=== PATIENT | male | born 1995 | race Caucasian/White ===

== ENCOUNTER 2017-01-16 21:50 | Emergency (ER) | payer OTHER ==
[~2017-01-16] VITALS: Ht 182.9 cm; Wt 75.1 kg
[2017-01-16] MEDS ORDERED: LAMO200T PO (22:07)
[2017-01-17] MEDS ORDERED: NORCO 5/325MG TABLET (BULK FOR ED) PO ONE (01:00)
[2017-01-17] MEDS ORDERED: NORCOTAB PO (01:04)
[2017-01-17 01:20] VITALS: BP 141/72
--- NOTE | 2017-01-17 14:28 | REP ---
LEFT SHOULDER: Four views of the left shoulder are performed. There is a comminuted fracture of the mid clavicle with inferior displacement and angulation. Acromioclavicular joint remains well aligned. No other fracture or dislocation is seen. Signed by Parker Diego MD 01/17/2017 03:23 P
== END 2017-01-17 01:21 | disposition home or self-care (01) ==
LOC: M ED 21:50
DX: S42.002A Fracture of unspecified part of left clavicle, initial encounter for closed fracture (principal); W18.09XA Striking against other object with subsequent fall, initial encounter; Y92.830 Public park as the place of occurrence of the external cause; Y93.89 Activity, other specified; Y99.8 Other external cause status; Z88.0 Allergy status to penicillin; Z79.899 Other long term (current) drug therapy

== ENCOUNTER 2017-02-06 10:35 | Day surgery (SDC) | payer OTHER ==
[~2017-02-06] VITALS: Ht 182.9 cm; Wt 77.1 kg
[~2017-02-06 10:35] MED LIST: LAMO200T PO; NORCOTAB PO
[2017-02-06] MEDS ORDERED: LR 1,000 ML IV ONE (11:00)
[2017-02-06] MEDS ORDERED: MIRT15TA3 PO (11:10)
[2017-02-06] MEDS ORDERED: CLINDAMYCIN INJ 900MG/6ML VIAL As Ordered ONE (11:50)
[2017-02-06] MEDS ORDERED: MIDAZOLAM INJ 2 MG/2 ML VIAL (J2250) As Ordered ONE (13:29)
[2017-02-06] MEDS ORDERED: fentaNYL 250 MCG/5 ML INJECTION (J3010) As Ordered ONE (13:29)
[2017-02-06] MEDS ORDERED: HYDROmorphone HCL 2 MG/ML 1ML VIAL (J1170) As Ordered ONE (13:29)
[2017-02-06] MEDS ORDERED: ONDANSETRON 4MG/2ML VIAL (J2405) As Ordered ONE (13:29)
[2017-02-06] MEDS ORDERED: NEOSTIGMINE 1MG/ML 5 ML SYRINGE (J2710) As Ordered ONE (13:29)
[2017-02-06] MEDS ORDERED: PROPOFOL 200 MG/20 ML VIAL As Ordered ONE (13:29)
[2017-02-06] MEDS ORDERED: ROCURONIUM BROMIDE 50 MG/5 ML VIAL/SYRINGE As Ordered ONE (13:29)
[2017-02-06] MEDS ORDERED: GLYCOPYRROLATE INJ 0.2 MG/ML 2 ML VIAL As Ordered ONE (13:29)
[2017-02-06] MEDS ORDERED: LIDOCAINE 2% INJ 100 MG/5 ML SDV (FOR ANES.) As Ordered ONE (13:29)
[2017-02-06] MEDS ORDERED: dexameTHASONE 4 MG/ML 1ML VIAL (J1100) As Ordered ONE (13:29)
--- NOTE | 2017-02-06 15:27 | REP ---
Left shoulder intraoperative fluoroscopic views: A total of three intraoperative fluoroscopic views are performed during stabilization plate placement of a clavicle fracture. The stabilization plate and fracture fragments are in satisfactory position alignment on all views. Fluoroscopic exposure time is 7 seconds. Fluoroscopic images are performed with last image hold technology. These images require no additional radiation. Signed by Parker Lee MD 02/06/2017 03:19 P
[2017-02-06] MEDS ORDERED: PERCOCET 5MG/325MG TAB As Ordered ONE (15:32)
[2017-02-06] MEDS: PERCOCET 5MG/325MG TAB PO PRN ×2 (15:33→16:10)
[2017-02-06] MEDS ORDERED: LR 1,000 ML IV SCH ×2 (15:45)
[2017-02-06] MEDS ORDERED: ONDANSETRON 4MG/2ML VIAL (J2405) IV PRN (15:45)
[2017-02-06] MEDS ORDERED: MORPHINE 4 MG/ML 1ML SYRINGE IV PRN (15:45)
[2017-02-06] MEDS ORDERED: NORCO, ANEXSIA 5/325MG TABLET (HYDROcodone/ACETAMINOPHEN) PO PRN ×2 (15:45)
[2017-02-06] MEDS ORDERED: METOCLOPRAMIDE INJ 10MG/2ML VIAL (J2765) IV PRN (15:45)
[2017-02-06] MEDS ORDERED: MEPERIDINE INJ 25 MG/ML VIAL (J2175) IV PRN (15:45)
[2017-02-06] MEDS ORDERED: fentaNYL 100 MCG/2 ML INJECTION (J3010) IV PRN (15:45)
[2017-02-06 17:35] VITALS: BP 133/75
--- NOTE | 2017-02-08 08:10 | RO ---
DATE OF PROCEDURE: 02/06/2017 PREPROCEDURE DIAGNOSIS: Comminuted displaced symptomatic left clavicle fracture. POSTPROCEDURE DIAGNOSIS: Comminuted displaced symptomatic left clavicle fracture. PROCEDURE: Open reduction internal fixation left clavicle fracture. SURGEON: Daron Gutierrez MD HISTOLOGY TECH: None. ANESTHESIA: General endotracheal tube anesthesia. COMPLICATIONS: None. ESTIMATED BLOOD LOSS: 50 mL. SPECIMENS: None. FINDINGS: It was a comminuted fracture midshaft clavicle with an inferior shell-like butterfly fragment. DESCRIPTION OF PROCEDURE: Antibiotics given intravenously preoperatively, then a successful general endotracheal tube anesthetic was established. He was placed on a Willem table, a bump placed under the left scapula. His left upper extremity was carefully prepped and then draped in the usual sterile fashion. A superior longitudinal incision was made over the fracture site after appropriate time-out had been obtained. Ioban was used. Bovie cautery was used to coagulate the bleeding vessels, then we dissected full thickness down onto the periosteum of the fracture site. Careful subperiosteal dissection around the fracture site was performed taking great care to minimize soft tissue stripping. There was a comminuted butterfly fragment that was sitting essentially vertically in the fracture site and that had to be teased out and, eventually, I was able to remove it. This butterfly fragment came from the inferior surface across the fracture site. It was difficult to piece it anatomically back together again because of some comminution, but I was able to get the fracture on the dorsal or superior surface anatomically aligned, open, and then, once that was in position, I was able to tease the butterfly fragment back underneath and across, bridging the fracture site and held it with an alligator clamp relatively stably. I then chose a plate to bridge across the fracture and, eventually, the one that fit the best was a Synthes left clavicle plate with the locking extensions. Once that was in position, I secured the plate down to the lateral fragment first with a standard 3.5 locking screw. Once that was applied to the plate along the lateral fragment, I reduced the fracture once again and then applied a standard 3.5 cortical screw on the medial side of the fracture site holding the fracture bridged in good, stable position. I then clamped the butterfly fragment that was inferior bridging across the fracture site and lagged that butterfly fragment with two of the screws that bridged on either side of the fracture site. I used the 3.5 drill through the plate and then the 2.5 drill inferiorly and passed 3.5 cortical screws in a lag fashion holding that fracture site nicely fixed across the fracture site. I then used a standard 2.7 screw laterally to hold the locking portion of the plate down against the clavicle, and then once that was held nicely down, I filled two additional locking screws using the 2.0 drill and 2.7 locking screws, and then replaced that 2.7 cortical screw with a standard locking screw laterally and then filled the remaining medial screw with a standard 3.5 cortical screw. Excellent stability was noted. I was quite pleased with the overall construct. Fluoroscopic imaging, AP, and lateral, and oblique planes showed we had good alignment of the fracture. The butterfly fragment was well coapted across the fracture site, not anatomically in position, but the construct was stable, and I felt this should allow things to bridge and heal appropriately. We copiously irrigated as I did several times throughout the operation. I was able to close the periosteum over the top of the plate with interrupted #2-0 PDS sutures, subdermal tissues were closed with interrupted #2-0 PDS sutures, and then the skin was closed with michelle. We then covered the wound with a bulky dressing and then he was placed into a sling and then awakened from general endotracheal tube anesthesia after having tolerated the procedure well, transferred to the recovery room in stable condition. There were no intraoperative complications.
== END 2017-02-06 17:48 ==
LOC: M SDC 10:35
PROVIDERS: ATTEND Orthopaedic Surgery
DX: S42.022A Displaced fracture of shaft of left clavicle, initial encounter for closed fracture (principal); X58.XXXA Exposure to other specified factors, initial encounter; Y92.89 Other specified places as the place of occurrence of the external cause; Y93.89 Activity, other specified; Y99.8 Other external cause status; Z88.0 Allergy status to penicillin; F17.210 Nicotine dependence, cigarettes, uncomplicated; F12.90 Cannabis use, unspecified, uncomplicated
CPT/HCPCS: 23515; 73000; C1776

== ENCOUNTER → 2017-02-16 | Outpatient (CLI) | payer OTHER ==
[~2017-02-16] MED LIST changes: +MIRT15TA3 PO
== END ==
LOC: M OUTALCOH 11:41
PROVIDERS: ATTEND Psychiatry & Neurology Psychiatry
DX: F12.20 Cannabis dependence, uncomplicated (principal)

== ENCOUNTER 2017-05-20 10:44 | Emergency (ER) | payer MEDICAID, OTHER ==
[~2017-05-20] VITALS: Ht 182.9 cm; Wt 74.4 kg
[2017-05-20] MEDS ORDERED: ACET50TAOT PO (10:50)
[2017-05-20] MEDS ORDERED: NS 1,000 ML IV ONE (12:15)
[2017-05-20] MEDS ORDERED: MECLIZINE 25 MG TABLET PO ONE (12:15)
[2017-05-20] MEDS ORDERED: ONDANSETRON 4MG/2ML VIAL (J2405) IV ONE (12:15)
[2017-05-20 12:35] LABS: BASO # 0.1 10^3/uL (0.0-0.2); EOS # 0.2 10^3/uL (0.0-0.50); EOS % 1.6 % (0.0-3.0); IMMATURE GRANULOCYTE % 1.1 % (0-0); LYMPH # 2.2 10^3/uL (1.5-6.5); LYMPH % 20.3 % (24.0-44.0); MEAN CORPUSCULAR HEMOGLOBIN 29.9 pg (27.0-33.0); MEAN CORPUSCULAR HGB CONC 34.2 g/dl (32.0-36.5); MEAN CORPUSCULAR VOLUME 87.4 fl (80.0-96.0); MONO # 1.1 10^3/uL (0.0-0.8); NEUTROPHILS # 7.2 10^3/uL (1.8-7.7); PLATELET COUNT, AUTOMATED 274 10^3/uL (150-450); RED CELL DISTRIBUTION WIDTH 13.9 % (11.5-14.5); WHITE BLOOD COUNT 10.9 10^3/uL (4.0-10.0)
--- NOTE | 2017-05-20 12:43 | REP ---
Clinical: Right-sided headache and tinnitus with vertigo . Comparison: None . Findings: The ventricles, sulci, and cisterns are normal in position and appearance. Diego-white differentiation is maintained. No acute intracranial hemorrhage, mass/mass effect, pathology or trauma/injury. No evidence for acute infarction. No extra-axial fluid collection. Calvarium is intact. Paranasal sinuses and mastoid air cells are clear. Impression: Normal noncontrast head CT. No evidence for acute intracranial pathology or trauma/injury. Signed by Jasbir Paez MD 05/20/2017 12:35 P
[2017-05-20 12:46] LABS: METHADONE URINE NEGATIVE (NEGATIVE)
[2017-05-20 12:53] LABS: ALBUMIN/GLOBULIN RATIO 1.21 (1.00-1.93); ALKALINE PHOSPHATASE 84 U/L (45-117); ALT/SGPT 31 U/L (12-78); ANION GAP 5 MEQ/L (8-16); AST/SGOT 20 U/L (7-37); BILIRUBIN,DIRECT < 0.1 MG/DL (0.0-0.2); BILIRUBIN,TOTAL 0.2 MG/DL (0.2-1.0); BLOOD UREA NITROGEN 10 MG/DL (7-18); CALCIUM LEVEL 8.9 MG/DL (8.5-10.1); CARBON DIOXIDE LEVEL 31 MEQ/L (21-32); CHLORIDE LEVEL 107 MEQ/L (98-107); CREATININE FOR GFR 0.79 MG/DL (0.70-1.30); GLOMERULAR FILTRATION RATE > 60.0 (>60); GLUCOSE, FASTING 75 MG/DL (70-105); POTASSIUM SERUM 4.2 MEQ/L (3.5-5.1); SODIUM LEVEL 143 MEQ/L (136-145); TOTAL PROTEIN 7.3 GM/DL (6.4-8.2)
[2017-05-20] MEDS ORDERED: CLEO300C2 PO (13:43)
[2017-05-20] MEDS ORDERED: CLINDAMYCIN 150 MG CAP PO ONE (13:45)
[2017-05-20 13:58] VITALS: BP 132/64
== END 2017-05-20 14:01 | disposition home or self-care (01) ==
LOC: M ED 10:44
DX: K02.9 Dental caries, unspecified (principal); R42 Dizziness and giddiness; R51 Headache; R78.5 Finding of other psychotropic drug in blood; F31.9 Bipolar disorder, unspecified; F17.210 Nicotine dependence, cigarettes, uncomplicated; Z88.0 Allergy status to penicillin
CPT/HCPCS: 70450; 80048; 80076; 80307; 81001; 85025; 96374; 99284; G0480; J2405

== ENCOUNTER 2017-10-23 15:09 | Emergency (ER) | payer MEDICAID, SELFPAY, OTHER ==
[2017-10-23] MEDS: LIDOCAINE W/EPINEPHRINE 1% 20ML VIAL SC ×2 (16:00)
[2017-10-23] MEDS: PERCOCET 5MG/325MG TAB PO ×2 (16:00)
[2017-10-23] MEDS: LIDOCAINE VISCOUS 2% SOLN 15ML UDC SSP ×2 (16:00)
[2017-10-23] MEDS: MORPHINE 10 MG/ML 1ML VIAL (J2270) IM ×4 (16:30→18:06)
[2017-10-23] MEDS: NORCO, ANEXSIA 5/325MG TABLET (HYDROcodone/ACETAMINOPHEN) PO ×2 (18:05)
[2017-10-23] MEDS: ONDANSETRON 4 MG ORAL DISINTEGRATING TAB (Q0162 PER 1MG) PO ×2 (18:45)
== END 2017-10-23 18:46 | disposition home or self-care (01) ==
LOC: M ED 15:09
DX: S01.01XA Laceration without foreign body of scalp, initial encounter (principal); S00.81XA Abrasion of other part of head, initial encounter; S00.33XA Contusion of nose, initial encounter; S00.11XA Contusion of right eyelid and periocular area, initial encounter; S00.12XA Contusion of left eyelid and periocular area, initial encounter; S50.11XA Contusion of right forearm, initial encounter; S02.602A Fracture of unspecified part of body of left mandible, initial encounter for closed fracture; Y04.8XXA Assault by other bodily force, initial encounter; Y92.89 Other specified places as the place of occurrence of the external cause; R94.31 Abnormal electrocardiogram [ECG] [EKG]; F41.9 Anxiety disorder, unspecified; F31.9 Bipolar disorder, unspecified; F43.10 Post-traumatic stress disorder, unspecified; Z88.0 Allergy status to penicillin
CPT/HCPCS: Q0162

== ENCOUNTER → 2017-11-02 | Outpatient (CLI) | payer MEDICAID ==
[2017-11-02 15:00] LABS: HEMATOCRIT 35.7 % (42.0-52.0); HEMOGLOBIN 12.4 g/dl (13.5-17.5); MEAN CORPUSCULAR HGB CONC 34.7 g/dl (32.0-36.5); MEAN CORPUSCULAR VOLUME 86.2 fl (80.0-96.0); PLATELET COUNT, AUTOMATED 318 10^3/uL (150-450); RED BLOOD COUNT 4.14 10^6/uL (4.30-6.10); RED CELL DISTRIBUTION WIDTH 13.3 % (11.5-14.5)
[2017-11-02 15:03] LABS: APPEARANCE, URINE CLEAR (CLEAR); BACTERIA, URINE AUTO NEGATIVE (NEGATIVE); BILIRUBIN, URINE AUTO NEGATIVE (NEGATIVE); BLOOD, URINE BLOOD NEGATIVE (NEGATIVE); COLOR, URINE YELLOW (YELLOW); GLUCOSE, URINE (UA) AUTO NEGATIVE (NEGATIVE); KETONE, URINE AUTO NEGATIVE (NEGATIVE); LEUKOCYTE ESTERASE, URINE AUTO NEGATIVE (NEGATIVE); MUCUS, URINE SMALL (NEGATIVE); NITRITE, URINE AUTO NEGATIVE (NEGATIVE); PROTEIN, URINE AUTO NEGATIVE (NEGATIVE); RBC, URINE AUTO 1 /HPF (0-3); SPECIFIC GRAVITY URINE AUTO 1.013 (1.002-1.035); SQUAMOUS EPITHELIAL CELL UR AU 0 /HPF (0-6); UROBILINOGEN, URINE AUTO 0.2 mg/dL (0.0-2.0); WBC, URINE AUTO 0 /HPF (0-3)
[2017-11-02 15:10] LABS: INR 1.26; PROTHROMBIN TIME 16.1 SECONDS (12.4-14.5)
[2017-11-02 15:11] LABS: PARTIAL THROMBOPLASTIN TIME 50.7 SECONDS (26.8-37.9)
[2017-11-02 15:41] LABS: ALBUMIN 4.3 GM/DL (3.2-5.2); ALBUMIN/GLOBULIN RATIO 1.54 (1.00-1.93); ALKALINE PHOSPHATASE 64 U/L (45-117); ALT/SGPT 19 U/L (12-78); ANION GAP 3 MEQ/L (8-16); AST/SGOT 25 U/L (7-37); BILIRUBIN,TOTAL 0.4 MG/DL (0.2-1.0); BLOOD UREA NITROGEN 16 MG/DL (7-18); CALCIUM LEVEL 8.8 MG/DL (8.5-10.1); CARBON DIOXIDE LEVEL 29 MEQ/L (21-32); CHLORIDE LEVEL 107 MEQ/L (98-107); CREATININE FOR GFR 0.89 MG/DL (0.70-1.30); GLOMERULAR FILTRATION RATE > 60.0 (>60); GLUCOSE, FASTING 79 MG/DL (70-100); POTASSIUM SERUM 4.4 MEQ/L (3.5-5.1); SODIUM LEVEL 139 MEQ/L (136-145); TOTAL PROTEIN 7.1 GM/DL (6.4-8.2)
== END ==
LOC: M LAB 14:07
DX: Z01.818 Encounter for other preprocedural examination (principal); S02.609A Fracture of mandible, unspecified, initial encounter for closed fracture; X58.XXXA Exposure to other specified factors, initial encounter; Y92.9 Unspecified place or not applicable; K02.9 Dental caries, unspecified
CPT/HCPCS: 71046

== ENCOUNTER 2019-07-27 19:16 | Emergency (ER) | payer MEDICAID, SELFPAY ==
[~2019-07-27] VITALS: Ht 180.3 cm; Wt 74.7 kg
[~2019-07-27 19:16] MED LIST changes: +ACET500T15 PO; +CLEO300C2 PO; +HYDR-3715 PO; -LAMO200T PO; +LAMO200T3 PO; -NORCOTAB PO
[2019-07-27] MEDS ORDERED: CLEO300C2 PO (21:45)
[2019-07-27] MEDS ORDERED: LIDOCAINE VISCOUS 2% SOLN 15ML UDC SSP ONE (21:45)
[2019-07-27] MEDS ORDERED: CLINDAMYCIN 150 MG CAP PO ONE (21:45)
[2019-07-27] MEDS ORDERED: MAGICMW SSP (21:45)
[2019-07-27 22:00] VITALS: BP 151/87
== END 2019-07-27 22:01 | disposition home or self-care (01) ==
LOC: M ED 19:16
DX: K02.9 Dental caries, unspecified (principal); F31.9 Bipolar disorder, unspecified; F43.10 Post-traumatic stress disorder, unspecified; Z88.0 Allergy status to penicillin; F17.210 Nicotine dependence, cigarettes, uncomplicated

== ENCOUNTER 2019-08-23 14:00 | Emergency (ER) | payer MEDICAID ==
[~2019-08-23] VITALS: Ht 182.9 cm; Wt 76.1 kg
[~2019-08-23 14:00] MED LIST changes: +MAGICMW SSP
[2019-08-23] MEDS ORDERED: CLEO300C2 PO (16:36)
[2019-08-23 16:41] VITALS: BP 124/68
== END 2019-08-23 16:43 | disposition home or self-care (01) ==
LOC: M ED 14:00
DX: K02.9 Dental caries, unspecified (principal); Z88.0 Allergy status to penicillin; F17.210 Nicotine dependence, cigarettes, uncomplicated

== ENCOUNTER 2020-01-08 19:25 | Emergency (ER) | payer MEDICAID, OTHER ==
[~2020-01-08] VITALS: Ht 182.9 cm; Wt 75.0 kg
[2020-01-08 19:25] VITALS: BP 133/77
--- NOTE | 2020-01-08 22:43 | REPVR ---
PROCEDURE INFORMATION: Exam: CT Right Upper Extremity Without Contrast, Wrist Exam date and time: 01/08/2020 10:23 PM Age: 24 years old Clinical indication: Pain; Wrist; Right; Additional info: Injury with pain TECHNIQUE: Imaging protocol: CT of the Right upper extremity without contrast was performed. Exam focused on the wrist. Radiation optimization: All CT scans at this facility use at least one of these dose optimization techniques: automated exposure control; mA and/or kV adjustment per patient size (includes targeted exams where dose is matched to clinical indication); or iterative reconstruction. COMPARISON: 1. CR Wrist, complete RIGHT 01/08/2020 9:24 PM 2. CR Hand, complete RIGHT 01/08/2020 9:24:17 PM (The reports from these studies were not available for review at the time of this interpretation.) FINDINGS: Bones/joints: There is a volar dislocation of the right distal ulna at the distal radioulnar joint. There is no fracture. There is no widening of the scapholunate or lunotriquetral spaces. There is a 6 mm well corticated ossicle situated dorsally between the base of the right 2nd and 3rd metacarpals, which is compatible with an os styloideum (carpal boss). Soft tissues: There is soft tissue swelling, hemorrhage, and edema along the dorsal aspect of the right wrist. IMPRESSION: 1. Volar dislocation of the right distal ulna at the distal radioulnar joint. 2. No fracture of the right wrist. Electronically signed by: Eyal Roman On 01/08/2020 22:43:33 PM
[2020-01-08] MEDS ORDERED: LIDOCAINE 1% MDV 20ML VIAL SC ONE (23:00)
[2020-01-08] MEDS ORDERED: NORCO 5/325MG TABLET (BULK FOR ED) PO ONE (23:45)
--- NOTE | 2020-01-09 08:20 | REP ---
REASON: Trauma. PRIORS: None. The exam is somewhat limited by positional technique. There is no definite acute fracture. It is possible that there is distal radial ulnar subluxation with the distal ulna subluxed ventrally. This needs to be recorded clinically. Electronically Signed by Felix Martínez DO 01/09/2020 09:53 A
--- NOTE | 2020-01-09 08:22 | REP ---
REASON: Trauma. There is no evidence of an acute fracture. The distal ulna appears to be subluxed potentially at the distal radial ulnar joint. This needs to be correlated clinically. This could represent an acute finding or a chronic change. Old healed fractures are seen involving the 2nd and 3rd metacarpals. Electronically Signed by Felix Martínez DO 01/09/2020 09:53 A
--- NOTE | 2020-01-09 08:25 | REP ---
REASON: Trauma. FINDINGS: There is no acute fracture, dislocation, subluxation, or joint effusion. Electronically Signed by Felix Martínez DO 01/09/2020 09:54 A
--- NOTE | 2020-01-09 08:26 | REP ---
REASON: Trauma. FINDINGS: There is no acute fracture, dislocation, subluxation, or joint effusion. Electronically Signed by Felix Martínez DO 01/09/2020 09:54 A
--- NOTE | 2020-01-09 08:27 | REP ---
REASON: Comparison view. FINDINGS: No acute fracture or destructive osseous lesion. Distal radial and ulnar alignment is normal. Electronically Signed by Felix Martínez DO 01/09/2020 09:54 A
--- NOTE | 2020-01-09 08:27 | REP ---
REASON: Trauma. FINDINGS: No acute fracture or destructive osseous lesion. See the wrist report. Electronically Signed by Felix Martínez DO 01/09/2020 09:54 A
--- NOTE | 2020-01-09 08:48 | REP ---
REASON: Reduction . Single spot view of the right wrist was obtained in my absent[place] using a portable C-arm device. 14.7 seconds of fluoroscopy time was provided for the procedure. The previously described suspected ventral subluxation of the distal ulna at the radial ulnar joint is again noted. The degree of reduction appears less but unchanged on this markedly limited exam. Electronically Signed by Felix Martínez DO 01/09/2020 09:55 A
--- NOTE | 2020-01-10 20:23 | ER ---
DATE OF CONSULTATION: 01/08/2020 CHIEF COMPLAINT: Right wrist pain. HISTORY OF THE PRESENT ILLNESS: Lizandro Palacio is a 24-year-old male who early this evening punched a fridge. He had pain and swelling to the right wrist and presented to the [facility] emergency room. Pain is primarily located at the wrist. He has mild pain at the elbow but nothing severe. He denies any numbness or tingling in his fingertips. PAST MEDICAL HISTORY: Depression. Anxiety. PAST SURGICAL HISTORY: Left clavicle open reduction internal fixation (ORIF). HOME MEDICATIONS: None. PHYSICAL EXAM: General: Well-appearing, alert and oriented. No acute distress. Pulmonary: Regular and nonlabored breathing. Musculoskeletal: In the right wrist, there is tenderness and mild deformity in the wrist. He has intact flexion/extension of his wrist and elbow, but is unable to fully pronate or supinate at the wrist. He can grossly wiggle his fingers. He has normal sensation to light touch in the medial, ulnar and radial distribution. There is mild swelling. IMAGING: X-rays and CT scan of the right upper extremity were reviewed. This shows an isolated ulna dislocation without any obvious fracture to the wrist, elbow or forearm. IMPRESSION: Right isolated ulna dislocation. PLAN: After informed consent was obtained, approximately 12 mL of 1% lidocaine were injected dorsally in the region of the ulna dislocation. After appropriate anesthetic was obtained, I did attempt to reduce the ulna dislocation using the mini C-arm. Unfortunately, it was impacted under the distal radius, and I was unable to gain a reduction. I placed him into a volar resting splint as he is having difficulties with supination and pronation, and it was difficult to get a sugar-tong splint on. Plans were made for him to present to [facility] first thing in the morning, given this was in the middle of the night, so that he could see a hand surgeon for likely open reduction and possible pinning of the ulna dislocation. I did offer him transfer directly from the emergency room; however, he stated he would rather go home and was able to get a ride. I did explain red flag symptoms to him, such as any increased pain, swelling, numbness, tingling, or other concerning features, he would need to present to the ER right away. Patient can call our office if he needs help facilitating an appointment at [facility], but was also given their number as well. All of the patient's questions were answered, and he was in agreement with this plan. BRUNILDA
== END 2020-01-09 00:16 | disposition home or self-care (01) ==
LOC: M ED 19:25
DX: S63.074A Dislocation of distal end of right ulna, initial encounter (principal); W22.8XXA Striking against or struck by other objects, initial encounter; Y92.009 Unspecified place in unspecified non-institutional (private) residence as the place of occurrence of the external cause; Y93.9 Activity, unspecified; Y99.9 Unspecified external cause status; F17.200 Nicotine dependence, unspecified, uncomplicated; F12.90 Cannabis use, unspecified, uncomplicated; Z88.0 Allergy status to penicillin

== ENCOUNTER → 2020-02-06 | Emergency (ER) | payer OTHER | END | disposition left against medical advice (07) | LOC: M ED 01:34 | DX: Z53.21 Procedure and treatment not carried out due to patient leaving prior to being seen by health care provider (principal) ==

== ENCOUNTER 2020-09-17 05:09 | Emergency (ER) | payer OTHER ==
[~2020-09-17] VITALS: Ht 180.3 cm; Wt 76.3 kg
[2020-09-17] MEDS ORDERED: ACETAMINOPHEN 500 MG TAB PO ONE (06:15)
[2020-09-17] MEDS ORDERED: LIDOCAINE 2% W/ EPINEPHRINE 1.7 ML DENTAL INJ SM ONE (06:25)
[2020-09-17 06:55] VITALS: BP 120/82
== END 2020-09-17 06:55 | disposition home or self-care (01) ==
LOC: M ED 05:09
DX: K02.9 Dental caries, unspecified (principal); F31.9 Bipolar disorder, unspecified; F41.9 Anxiety disorder, unspecified; F43.10 Post-traumatic stress disorder, unspecified; Z88.0 Allergy status to penicillin; F17.210 Nicotine dependence, cigarettes, uncomplicated

== ENCOUNTER 2020-09-21 02:56 | Emergency (ER) | payer OTHER ==
[~2020-09-21] VITALS: Ht 182.9 cm; Wt 74.2 kg
[2020-09-21] MEDS ORDERED: IBUP1TAB6 PO ×2 (03:03→05:25)
[2020-09-21] MEDS ORDERED: EXCETAB33 PO (03:03)
[2020-09-21] MEDS ORDERED: CLINDAMYCIN 150MG CAPSULE PO ONE (05:25)
[2020-09-21] MEDS ORDERED: CLEO300C2 PO (05:25)
[2020-09-21] MEDS ORDERED: KETOROLAC 60MG 2ML VIAL IM ONE (05:25)
[2020-09-21 06:20] VITALS: BP 124/65
== END 2020-09-21 06:23 | disposition home or self-care (01) ==
LOC: M ED 02:56
DX: K08.89 Other specified disorders of teeth and supporting structures (principal); Z88.0 Allergy status to penicillin; Z79.82 Long term (current) use of aspirin; F17.210 Nicotine dependence, cigarettes, uncomplicated
CPT/HCPCS: 96372; 99283; J1885

== ENCOUNTER 2022-02-22 22:53 | Emergency (ER) | payer OTHER ==
[~2022-02-22] VITALS: Ht 182.9 cm; Wt 72.7 kg
[2022-02-22 22:53] VITALS: BP 134/73
[~2022-02-22 22:53] MED LIST changes: +EXCETAB32 PO; +IBUP1TAB6 PO
== END 2022-02-23 02:56 | disposition left against medical advice (07) ==
LOC: M ED 22:53
DX: Z53.29 Procedure and treatment not carried out because of patient's decision for other reasons (principal)

== ENCOUNTER 2022-07-19 17:16 | Emergency (ER) | payer OTHER ==
[~2022-07-19] VITALS: Ht 182.9 cm; Wt 71.0 kg
[2022-07-19 17:17] VITALS: BP 112/60
[2022-07-19] MEDS ORDERED: ACET325C5 PO (17:41)
== END 2022-07-19 19:49 | disposition left against medical advice (07) ==
LOC: M ED 17:16
DX: Z53.21 Procedure and treatment not carried out due to patient leaving prior to being seen by health care provider (principal)